=== PATIENT | male | born 1945 | race Caucasian/White ===

== ENCOUNTER 2021-07-26 07:25 | Emergency (ER) | payer MEDICARE, MEDICAID, SELFPAY ==
--- NOTE | ~2021-07-26 | XR_ITS ---
EXAMINATION: XR LUMBOSACRAL SPINE CLINICAL INFORMATION: Pain. COMPARISON: None TECHNIQUE: Three views of the lumbosacral spine. FINDINGS: There is normal lumbar lordosis. Loss of L4-L5 and L5/S1 disc heights with moderate ventral spondylosis. There is moderate ventral spondylosis no visible acute fracture, dislocation or lytic process seen. The paravertebral soft tissues are normal. 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
[2021-07-26 07:29] VITALS: BP 154/76; PULSE 92; RESP 18; TEMP 36.6; O2SAT 98; BMI 27.4
[2021-07-26 08:39] VITALS: BP 135/74; PULSE 78; RESP 16; O2SAT 95
--- NOTE | 2021-07-26 10:55 | ED_ITS ---
HPI - Back Pain/Injury General Chief Complaint: Back Pain/Injury Stated Complaint: back pain Time Seen by Provider: 07/26/21 10:54 History of Present Illness HPI Narrative: Patient is 75 years old history of having back pain. It is dull it is over the entire back he had a previous history of similar pain in the past. This pain is been ongoing for the last few days. There is no trauma. Patient denies any bowel or urinary incontinence. Denies any focal weakness in the legs. Been taking Tylenol at home. Came in for further evaluation. There is no specific trauma Related Data Allergies Allergy/AdvReac Type Severity Reaction Status Date / Time aspirin Allergy Eye Verified 07/26/21 07:35 Swelling Review of Systems Review of Systems: No fever no chills no chest pain or shortness of breath no diaphoresis All systems reviewed otherwise negative Yes all other systems are reviewed and are negative [facility] Past Medical History Attestation statement: The following information was validated with the patient. Medical History HTN (hypertension) Hypothyroid Surgical History History of back surgery Social History Social History Smoked in Last 30 Days: No Use of substances other than those prescribed or required for medical reasons: No Advance Directives: No Physical Exam Vital Signs: Vital Signs: Last Vital Signs Temp 98 F 07/26/21 07:29 Pulse 78 07/26/21 08:39 Resp 16 07/26/21 08:39 BP 135/74 07/26/21 08:39 Pulse Ox 95 07/26/21 08:39 Body Mass Index 27.4 Appearance: Alert. Oriented X3. No acute distress. Eyes: Pupils equal, round and reactive to light. ENT: Pharynx normal. Neck: Normal inspection. Neck supple. No lymph nodes noted. No crepitus CVS: Normal heart rate and rhythm. Pulses normal. Normal S1 and S2 Respiratory: No respiratory distress. Breath sounds normal. No Wheezing. No rales Abdomen: Soft and nontender. No rigidity. No distention. good BS x4 Back exam there is no spinal tenderness elicited on palpation. Positive paraspinal muscle tenderness elicited bilaterally. Sensation the lower extremity intact. Ambulate with normal gait. Skin: Skin warm and dry. Normal skin color. Normal skin turgor. Extremities: No lower extremity edema. Neurovascular intact to all extremities. No Lacerations. No Rash Neuro: Oriented X 3. No motor deficit. No sensory deficit. Moving all extermities. No slurred speech. Reflex 2+ at patella. MDM - Back Pain/Injury MDM Narrative Medical decision making narrative: X-ray was done given patient's age. No acute fracture was noted will have patient use some muscle relaxant with the Tylenol. Close follow-up on outpatient basis. In stable condition. There was no bowel urine incontinence. There is no focal weakness. Currently in stable condition. Differential Diagnosis Differential diagnosis: Likely lumbar radiculopathy, sciatica, strain of lumbar region, renal colic, pyelonephritis, thoracic back pain and AAA Medical Records Attestation: I reviewed the patient's medical records. Lab Data Attestation: I reviewed the patient's lab results. Discharge Plan Discharge Clinical Impression: Strain of lumbar region Patient Disposition: Home, Self-Care Instructions: Acute Low Back Pain (ED) Referrals: Physician,Unknown [Primary Care Provider] - 2 days
== END 2021-07-26 11:04 | disposition home or self-care (01) ==
PROVIDERS: Emergency Provider Emergency Medicine Emergency Medical Services
DX: S39.012A Strain of muscle, fascia and tendon of lower back, initial encounter (principal); X58.XXXA Exposure to other specified factors, initial encounter; Y93.9 Activity, unspecified; Y92.9 Unspecified place or not applicable; Y99.9 Unspecified external cause status
CPT/HCPCS: 72100; 99283; 99284